=== PATIENT | male | born 1945 | race Caucasian/White ===

== ENCOUNTER → 2018-05-22 12:56 | Outpatient (CLI) | payer MEDICARE | END | disposition home or self-care (01) | LOC: D.LAB 12:56 | DX: R97.20 Elevated prostate specific antigen [PSA] (principal); Z12.5 Encounter for screening for malignant neoplasm of prostate ==

== ENCOUNTER 2018-06-25 05:18 | Day surgery (SDC) | payer MEDICARE, OTHER ==
[~2018-06-25] VITALS: Ht 180.3 cm; Wt 115.7 kg
--- NOTE | ~2018-06-25 | OP ---
PATIENT NAME: JOSHUA DESAI MEDICAL RECORD: [id number] LOCATION:D.FORMERLY [facility] ADMISSION DATE: SURGEON: RYLEY RUSSO MD DATE OF OPERATION: 06/25/2018 SURGEON: Ryley Russo MD ANESTHESIA: TIVA by Saige Sorto CRNA DIAGNOSIS: Obstructive BPH. PROCEDURE: Cystoscopy and UroLift times 4. FINDINGS: Obstructive lateral lobes of the prostate. IPSS equals 15. Quality of life equals 4. ESTIMATED BLOOD LOSS: None. CLINICAL HISTORY: This is a 73-year-old male who has obstructive BPH symptoms. He wishes to have the UroLift procedure done. His IPSS score is 15 and his quality of life score is 4. He is on tamsulosin. He is not allergic to any medications. We gave him Ancef on-call to the OR. DESCRIPTION OF PROCEDURE: The patient was given IV sedation. He was placed in the dorsal lithotomy position. The scope was introduced using the obturator. Findings are as outlined above. No bladder tumors were seen. The bladder is trabeculated. About 2 cm distal to the bladder neck, we inserted one UroLift device in each lateral lobe and anterior portion of the urethra. Then, at the level of the verumontanum, we inserted another 2 units, one on each side. At the end of the procedure, the urethral channel was wide open. The bladder was emptied through the cystoscope sheath and then the scope was removed. I will see the patient in follow up in one month's time. TRANSINT:[id number] Voice Confirmation ID: [id number] DOCUMENT ID: [id number] RYLEY RUSSO MD at 1136 CC: [id number] DICTATION DATE: 06/25/18 0834 DIABETES TRAINER: 06/25/18 1105 [facility] 06/25/18 [place] [id number]
[~2018-06-25 05:18] MED LIST: BAYER CHEWABLE81 MG; FLOMAX0.4 MG PO; PROSCAR5 MG; TOPROL XL50 MG; TRIAMTERENE/HCTZ PO; ZOCOR20 MG PO
[2018-06-25 06:11] LABS: HEMATOCRIT 43.1 % (42.0-54.0); MCHC 34.8 g/dL (31.0-37.0); MCV 91.9 fL (80.0-100.0); MEAN PLATELET VOLUME 11.8 fL (7.4-10.4); RBC 4.69 10x6/uL (4.20-6.10); RDW 12.6 % (11.5-14.5); WBC 9.6 10x3/uL (4.8-10.8)
[2018-06-25 06:21] VITALS: BP 130/73; Ht 180.3 cm; Wt 115.7 kg
== END 2018-06-25 08:59 | disposition home or self-care (01) ==
LOC: D.OPS 05:18 → D.PAN 08:00 → D.OPS 08:15 → D.PAN 08:15 → D.OPS 08:59 → D.PAN 09:00
PROVIDERS: Anesthesiology
DX: N40.1 Benign prostatic hyperplasia with lower urinary tract symptoms (principal); N13.8 Other obstructive and reflux uropathy; N32.89 Other specified disorders of bladder; Z01.812 Encounter for preprocedural laboratory examination

== ENCOUNTER → 2018-09-18 19:04 | Outpatient (CLI) | payer MEDICARE, OTHER ==
[2018-06-25 06:21] VITALS: BMI 35.6
== END | disposition home or self-care (01) ==
LOC: D.LABREF 19:04
PROVIDERS: ATTEND Urology
DX: D72.829 Elevated white blood cell count, unspecified (principal)